=== PATIENT | male | born 2000 | race Two or more races ===

== ENCOUNTER 2020-04-08 15:41 | Emergency (ER) | payer BC, SELFPAY ==
[2020-04-08 16:23] VITALS: BP 143/90; PULSE 60; RESP 16; TEMP 36.1; O2SAT 100; BMI 27.8
[2020-04-08 16:29] VITALS: BP 121/56; PULSE 52
--- NOTE | 2020-04-08 16:30 | ECG_ITS ---
Test Reason : DIZZINESS Blood Pressure : / mmHG Vent. Rate : 050 BPM Atrial Rate : 050 BPM P-R Int : 142 ms QRS Dur : 084 ms QT Int : 430 ms P-R-T Axes : 044 084 020 degrees QTc Int : 392 ms Sinus bradycardia Otherwise normal ECG No previous ECGs available Referred By: Devon Javed Electronically Signed By:ROBERT LEARY MD
--- NOTE | 2020-04-08 16:30 | ED.GENADULT ---
HPI - General Adult General Chief complaint: General Medical Stated complaint: numbness Time Seen by Provider: 04/08/20 16:21 Source: patient Mode of arrival: ambulatory Limitations: no limitations History of Present Illness HPI narrative: Patient with history of exercise-induced asthma otherwise very healthy took 2 puffs of albuterol inhaler prior to game and within few minutes of that while standing started feeling dizzy and lightheaded fog in the mind now he is back to normal. Patient responded play sports and never had this problem before no palpitation had near-syncope episode last month in the same situation patient had his breakfast in the morning. No family history of seizures or sudden cardiac patient denies any history of anxiety depression Related Data Allergies Allergy/AdvReac Type Severity Reaction Status Date / Time No Known Allergies Allergy Verified 04/08/20 16:23 Review of Systems Review of Systems: REVIEW OF SYSTEMS: Pertinent positives and negatives are stated above in the history. GEN: no fevers, chills, fatigue HEENT: no nasal congestion, sore throat, ear pain NEURO: no headache, dizziness, focal weakness PULM: no cough, shortness of breath CV: no chest pain, palpitations, LE edema ABD: no abdominal pain, nausea, vomiting, diarrhea : no dysuria, urgency, frequency SKIN: no rash ROS otherwise negative x 10 PMFSH Past Medical History Medical History Asthma Social History Social History Advance Directives: No Advance Directives Information Provided: No Physical Exam Vital Signs: Vital Signs: Vital Signs Temp Pulse Resp BP Pulse Ox 04/08/20 17:41 60 118/60 04/08/20 16:29 52 121/56 L 04/08/20 16:23 97.0 F 60 16 143/90 H 100 Body Mass Index 27.8 VITAL SIGNS: Reviewed. GENERAL: Well developed, well nourished, in no acute distress. HEAD: Normocephalic/atraumatic, EYES: PERRLA No pallor/icterus noted EARS: Ext canals without abnormality NOSE: Nares patent bilateral OROPHARYNX: Oral mucosa moist no oral lesions NECK: Supple, no adenopathy LUNGS: Normal breath sounds. No adventitious sounds or accessory muscle use CARDIOVASCULAR: Regular rate and rhythm without noted murmurs, no JVD or lower extremity edema. ABDOMEN: Soft, non-tender, non-distended with bowel sounds. No rigidity. No guarding. No palpable masses or hernias noted MUSCULOSKELETAL: No tenderness, deformities, EXTREMITIES: No cyanosis or edema. SKIN: no rashes, ulcerations, jaundice, pallor, or petechiae NEUROLOGIC: Alert and oriented x 3. Strength and sensation to light touch were grossly intact Course Course Course Narrative: patient's symptoms likely from vasovagal episode no heart murmur auscultated normal orthostatic and normal blood sugar patient had similar episode 1 month ago patient advised to follow-up with primary care doctor Medical Decision Making Lab Data Labs: Lab Results 04/08/20 Range/Units 17:27 POC Glucose 81 (60-115) mg/dL ECG Data Attestation: I personally reviewed and interpreted this ECG as follows: Prior ECG tracings: not available for review Interpretation: sinus bradycardia with heart rate of 50 normal intervals normal axis no acute ST wave changes Discharge Plan Discharge Clinical Impression: Vasovagal episode Patient Disposition: Home, Self-Care Instructions: Near Syncope (ED) Additional Instructions: drink plenty of fluids, when you have this kind of episodes in future sit down and have something to drink. Follow with primary care doctor Interventions: ED Discharge Assessment Last Done: 04/08/20 17:42 Discharge Date/Time: 04/08/20 17:48
[2020-04-08 17:35] LABS: Glucose, Whole Blood 81 mg/dL (60-115)
[2020-04-08 17:41] VITALS: BP 118/60; BP 120/70; PULSE 53; PULSE 60
== END 2020-04-08 17:48 | disposition home or self-care (01) ==
PROVIDERS: Emergency Provider Internal Medicine; PCP Pediatrics
DX: R55 Syncope and collapse (principal); R42 Dizziness and giddiness
CPT/HCPCS: 82947; 93005; 99283

== ENCOUNTER 2020-11-11 10:43 | Emergency (ER) | payer OTHER, SELFPAY ==
--- NOTE | ~2020-11-11 | CT_ITS ---
EXAMINATION: CT BRAIN AND CT FACIAL BONES WITHOUT CONTRAST. CLINICAL INFORMATION: Status post elbow. Now presents with headache and epistaxis. COMPARISON: None TECHNIQUE: 5 mm thin axial and reformatted 2 mm thin sagittal and coronal images of brain were obtained. Axial 3 mm thin and reformatted 1.5 mm thin sagittal coronal images of facial bones were obtained without contrast. 1006 mGy FINDINGS: Brain: No acute intra-axial, extra-axial bleed, masses or midline shift. There is no acute infarction in evolution. There is no edema. The lateral ventricles are symmetrical in size and configuration without enlargement. The cloud to white matter differentiation is maintained normal. Bone windows reveal no calvarial abnormality. No scalp abnormality seen either. Bilateral paranasal sinuses and mastoid air cells are well-aerated. Facial bones: There is normal aeration of bilateral paranasal sinuses and mastoids without any mucoperiosteal thickening or air-fluid levels. The bony sinus medellin, lamina papyracea and the cribriform plate are intact. The bony orbits are intact. Visualized bilateral optic globe, optic nerve and the extraocular muscles are normal. There is a depressed left nasal bone fracture with mild soft tissue swelling. There is mild deviation of nasal septum to the left with a small bony spur. The turbinates are symmetrical. The nasal cavity and nasopharyngeal airway is widely patent. Visualized bony maxilla, mandible and TM joints are normal. The soft tissues are normal. CT/CT facial bones wo con IMPRESSION: No acute intracranial process seen. Moderate left nasal bone depressed fracture with soft tissue swelling. No additional maxillofacial or mandibular fractures seen. Mild deviation of nasal septum to the left with a small bony nasal spur.
[2020-11-11 10:58] VITALS: BP 130/71; PULSE 83; RESP 16; TEMP 37.1; O2SAT 99; BMI 26.4
[2020-11-11] MEDS: Acetaminophen 325 MG TABLET 975 MG PO (11:23)
[2020-11-11] MEDS: Oxymetazoline HCl 0.05 % Nasal 15 ML SPRAY 2 SPRAY NOSTRIL-B (11:24)
--- NOTE | 2020-11-11 11:33 | ED_ITS ---
History of Present Illness General Chief Complaint: General Medical Stated Complaint: broken nose Time Seen by Provider: 11/11/20 11:05 Source: patient and family (Mother) Mode of arrival: ambulatory Limitations: no limitations History of Present Illness HPI Narrative: 19-year-old male with a past medical history of asthma presenting with his mother with complaints of bilateral epistaxis after being elbowed in his nose while playing football prior to arrival. He pinches nose lean forward and applied ice and the bleeding is now resolved. reports he did not fall to the ground or lose consciousness. He reports he has a headache at this time. Patient reports he is currently in college and is up-to-date on all immunizations. Patient denies any other injuries complaints or concerns at this time. Location: Yes bilateral nares Onset/current episode: Yes minute(s) ( prior to arrival) Duration: Yes constant Pertinent past history: Yes other Context: Yes trauma ( elbow to nose while playing football prior to arrival) Associated symptoms: Yes headache and Yes nasal/face pain Treatment prior to arrival: Yes nose pinching, Yes head leaning forward, Yes stuff nose with tissue and Yes ice Related Data Previous Rx's Medication Instructions Recorded acetaminophen [Tylenol Extra 1,000 mg PO QID PRN #14 tab 11/11/20 Strength] ibuprofen 800 mg PO Q8H PRN #14 tab 11/11/20 oxycodone 5 mg PO BID PRN #10 tab 11/11/20 Allergies Allergy/AdvReac Type Severity Reaction Status Date / Time No Known Allergies Allergy Verified 04/08/20 16:23 Review of Systems Review of Systems: Constitutional : No Fever, No Chills ENT/Mouth : No Ear Pain, No Nasal Congestion, positive nose bleed Eyes: No Eye Pain, No Swelling, No Redness Cardiovascular : No Chest Pain, No SOB Respiratory : No Cough, No Sputum Gastrointestinal : No Nausea, No Vomiting, No Diarrhea Genitourinary : No Dysuria, No Hematuria Musculoskeletal : No joint pain, No Myalgias Skin : No Skin Lesions, No rash Neuro : No Weakness, No Numbness, positive headache Psych : No Anxiety/Panic, No Depression Heme/Lymph: No Bleeding,No Lymphadenopathy Endocrine : No Polyuria, No Polydipsia Yes all other systems are reviewed and are negative PMFSH Past Medical History Attestation statement: The following information was validated with the patient. Medical History Asthma Social History Social History Advance Directives: No Advance Directives Information Provided: No Physical Exam Vital Signs: Vital Signs: Last Vital Signs Temp 98.7 F 11/11/20 10:58 Pulse 83 11/11/20 10:58 Resp 16 11/11/20 10:58 BP 130/71 11/11/20 10:58 Pulse Ox 99 11/11/20 10:58 Body Mass Index 26.4 Vital signs have been reviewed as normal and appeared to be correct. Blood pressure normal. Heart rate normal. Respiration rate normal. Temperature normal. Oxygen saturation normal. Appearance: Alert. Oriented X3. No acute distress. Head: Normal external exam. Normocephalic. Atraumatic. Able to rotate head bilaterally. Eyes: PERRLA. EOMI. No nystagmus noted. Conjunctiva and sclera normal. Eyelids normal. Corneal reflex normal. ENT: The patient's nasal bone is shifted to the right not midline. bilateral nares with bright red blood noted no active bleeding. No septal hematomas noted. The posterior pharynx is within normal limits no blood noted. No injury to the dentition. EAC normal. TM's Normal. No hemotympanum noted. Hearing normal. Pharynx normal. Uvula midline. tongue midline. Moist mucous membranes. No trismus noted. No drooling noted. No muffled voice noted. Neck: Normal inspection. Neck supple. FROM. No adenopathy. Thyroid Normal. No meningeal signs. No neck mass noted. CVS: Normal heart rate and rhythm. Heart sound normal. No murmurs noted. Pulses normal throughout. Respiratory: No respiratory distress. Painless inspiration. Breath sounds normal. No wheezes/rales/rhonchi noted. Chest nontender. No accessory muscle usage noted or decreased air movement noted. Back: Full range of motion noted. Skin: Skin warm and dry. Normal skin color. Normal skin turgor. No rashes/lesions/lacerations noted. Extremities: Extremities exhibit normal range of motion. Extremities nontender. Able to shrug shoulders bilaterally and keep up against resistance. Neuro: Oriented X 3. No motor deficit. No sensory deficit. Reflexes normal. Moving all extremities. No focal motor deficits. Cranial nerves II-XI intact bilaterally. Facial strength normal. Normal cognition. Speech normal. Gait normal. Strength 5/5 throughout. No pronator drift. No tremor noted. No fasciculations noted. Muscle tone normal throughout. No asterixis noted. Hbomke-fy-dkzy test normal. Heel to jaffe test normal. Tandem gait normal. Does not sway with eyes open. Romberg test negative. Rapid alternating movement upper extremity normal. Rapid alternating movement lower extremity normal. Hand drop from overhead-Mrs. face. No rigidity noted. NIHSS score 0. Course Course Course Narrative: 11:15am - 19-year-old male with a past medical history of asthma presenting with his mo ther with complaints of bilateral epistaxis after being elbowed in his nose while playing football prior to arrival. He pinches nose lean forward and applied ice and the bleeding is now resolved. reports he did not fall to the ground or lose consciousness. He reports he has a headache at this time. Patient reports he is currently in college and is up-to-date on all immunizations. Plan: CT scan of brain/facial bones. [place] Afrin into the nares. Provide Tylenol for the patient's pain then re-evaluate. Reevaluation(s) Reevaluation #1: - CT scan of facial bones revealed moderate left nasal bone depressed fracture with soft tissue swelling and mild deviation of nasal septum to the left with small bony nasal spur otherwise no other acute processes. Patient is no longer bleeding from his nostrils. Will DC home with instructions to follow-up with ear nose and throat and to return if any new or worsening symptoms and to follow up with primary care provider as well. Patient understands agrees with this plan. Time: 13:02 [facility] - [facility] Medical Records Attestation: I reviewed the patient's medical records. Imaging Data CT scan of brain/facial bones without contrast: Attestation: I personally reviewed and interpreted this imaging study as follows: Radiologist's impression: FINDINGS: Brain: No acute intra-axial, extra-axial bleed, masses or midline shift. There is no acute infarction in evolution. There is no edema. The lateral ventricles are symmetrical in size and configuration without enlargement. The cloud to white matter differentiation is maintained normal. Bone windows reveal no calvarial abnormality. No scalp abnormality seen either. Bilateral paranasal sinuses and mastoid air cells are well-aerated. Facial bones: There is normal aeration of bilateral paranasal sinuses and mastoids without any mucoperiosteal thickening or air-fluid levels. The bony sinus medellin, lamina papyracea and the cribriform plate are intact. The bony orbits are intact. Visualized bilateral optic globe, optic nerve and the extraocular muscles are normal. There is a depressed left nasal bone fracture with mild soft tissue swelling. There is mild deviation of nasal septum to the left with a small bony spur. The turbinates are symmetrical. The nasal cavity and nasopharyngeal airway is widely patent. Visualized bony maxilla, mandible and TM joints are normal. The soft tissues are normal. CT/CT facial bones wo con IMPRESSION: No acute intracranial process seen. Moderate left nasal bone depressed fracture with soft tissue swelling. No additional maxillofacial or mandibular fractures seen. Mild deviation of nasal septum to the left with a small bony nasal spur. Discharge Plan Discharge Clinical Impression: Fracture of nasal bone Patient Disposition: Home, Self-Care Instructions: Nasal Fracture (ED) Additional Instructions: Do not play any sports until you see the ear nose and throat doctor. Prescriptions: New ibuprofen 800 mg tablet 800 mg PO Q8H PRN (Reason: pain) Qty: 14 RF: 0 acetaminophen [Tylenol Extra Strength] 500 mg tablet 1,000 mg PO QID PRN (Reason: fever or pain) Qty: 14 RF: 0 oxycodone 5 mg tablet 5 mg PO BID PRN (Reason: pain) Qty: 10 RF: 0 Referrals: New Davila [Physician] - 2 days Print Language: Jordanian
== END 2020-11-11 13:14 | disposition home or self-care (01) ==
PROVIDERS: Emergency Provider Emergency Medicine Emergency Medical Services
DX: S02.2XXA Fracture of nasal bones, initial encounter for closed fracture (principal); R04.0 Epistaxis; G44.309 Post-traumatic headache, unspecified, not intractable; Y29.XXXA Contact with blunt object, undetermined intent, initial encounter; Y93.61 Activity, american tackle football; Y92.321 Football field as the place of occurrence of the external cause; Y99.9 Unspecified external cause status; Z79.899 Other long term (current) drug therapy
CPT/HCPCS: 70450; 70486; 99283